=== PATIENT | female | born 1995 | race Hispanic/Latino ===

== ENCOUNTER 2016-06-21 12:40 | Emergency (ER) | payer MEDICAID ==
[2016-06-21 13:39] VITALS: BP 138/84
[2016-06-21 14:30] LABS: Alanine Aminotransferase 11 units/L (7-56); Albumin 3.6 g/dL (3.9-5); Albumin/Globulin Ratio 1.1 %; Alkaline Phosphatase 85 units/L (35-129); Anion Gap 15 mmol/L; Bilirubin,Total 0.2 mg/dL (0.1-1.2); Blood Urea Nitrogen 5 mg/dL (7-17); Calcium 9.1 mg/dL (8.4-10.2); Carbon Dioxide 22 mmol/L (22-30); Chloride 100.7 mmol/L (98-107); Glucose 93 mg/dL (65-100); Lipase 25 units/L (13-60); Potassium 3.9 mmol/L (3.6-5.0); Sodium 134 mmol/L (137-145); Total Protein 6.8 g/dL (6.3-8.2)
[2016-06-21 14:33] LABS: Basophils % (Auto) 0.3 % (0.0-1.8); Eosinophils % (Auto) 0.8 % (0.0-4.3); Hematocrit 35.1 % (30.3-42.9); Hemoglobin 11.8 gm/dl (10.1-14.3); Mean Corpuscular HGB Conc 34 % (30-34); Mean Corpuscular Hemoglobin 28 pg (28-32); Mean Corpuscular Volume 84 fl (79-97); Platelet Count 240 K/mm3 (140-440); Red Blood Count 4.18 M/mm3 (3.65-5.03); Red Cell Distribution Width 16.2 % (13.2-15.2); White Blood Count 10.2 K/mm3 (4.5-11.0)
[2016-06-21 15:19] LABS: Bilirubin,Urine NEG (Negative); Blood,Urine NEG (Negative); Ketones,Urine NEG (Negative); Leukocyte Esterase,Urine MOD (Negative); Mucus,Urine 3+ /HPF; Nitrite,Urine NEG (Negative); Protein,Urine <15 mg/dL mg/dL (Negative)
--- NOTE | 2016-06-22 12:42 | ED Elopement Review ---
ED Pt Elopement review - Results review Lab results: Laboratory Tests 06/21/16 06/21/16 06/21/16 13:56 13:56 14:23 WBC 10.2 RBC 4.18 Hgb 11.8 Hct 35.1 MCV 84 MCH 28 MCHC 34 RDW 16.2 H Plt Count 240 Lymph % (Auto) 17.6 [place] % (Auto) 3.5 Eos % (Auto) 0.8 Baso % (Auto) 0.3 Lymph # 1.8 Josephine # 0.4 Eos # 0.1 Baso # 0.0 Seg Neutrophils % 77.8 H Seg Neutrophils # 7.9 H Sodium 134 L Potassium 3.9 Chloride 100.7 Carbon Dioxide 22 Anion Gap 15 BUN 5 L Creatinine 0.5 L Estimated GFR > 60 BUN/Creatinine Ratio 10.00 Glucose 93 Calcium 9.1 Total Bilirubin 0.2 AST 13 ALT 11 Alkaline Phosphatase 85 Total Protein 6.8 Albumin 3.6 L Albumin/Globulin Ratio 1.1 Lipase 25 Urine Color Yellow Urine Turbidity Clear Urine pH 6.0 Ur Specific [place] 1.020 Urine Protein <15 mg/dl Urine Glucose (UA) Neg Urine Ketones Neg Urine Blood Neg Urine Nitrite Neg Urine Bilirubin Neg Urine Urobilinogen 2.0 Ur Leukocyte Esterase Mod Urine WBC (Auto) 1.0 Urine RBC (Auto) 2.0 U Epithel Cells (Auto) 4.0 Urine Mucus 3+ - Call Back decision Pt Call Back Decision: No action required
== END 2016-06-21 23:45 | disposition left against medical advice (07) ==
LOC: ED 12:40
DX: O26.891 Other specified pregnancy related conditions, first trimester (principal); R10.9 Unspecified abdominal pain; Z53.21 Procedure and treatment not carried out due to patient leaving prior to being seen by health care provider
CPT/HCPCS: 36415; 80053; 81001; 83690; 85025

== ENCOUNTER 2016-07-04 21:54 | Emergency (ER) | payer MEDICAID ==
[2016-07-04 23:15] LABS: Basophils % (Auto) 0.2 % (0.0-1.8); Eosinophils % (Auto) 1.7 % (0.0-4.3); Hematocrit 36.8 % (30.3-42.9); Hemoglobin 12.3 gm/dl (10.1-14.3); Mean Corpuscular HGB Conc 34 % (30-34); Mean Corpuscular Hemoglobin 28 pg (28-32); Mean Corpuscular Volume 84 fl (79-97); Platelet Count 252 K/mm3 (140-440); Red Cell Distribution Width 15.3 % (13.2-15.2); White Blood Count 11.9 K/mm3 (4.5-11.0)
[2016-07-04 23:51] LABS: Alanine Aminotransferase 19 units/L (7-56); Albumin 3.7 g/dL (3.9-5); Albumin/Globulin Ratio 1.1 %; Alkaline Phosphatase 105 units/L (35-129); Anion Gap 23 mmol/L; Bilirubin,Total 0.2 mg/dL (0.1-1.2); Blood Urea Nitrogen 5 mg/dL (7-17); Calcium 8.9 mg/dL (8.4-10.2); Carbon Dioxide 17 mmol/L (22-30); Chloride 100.6 mmol/L (98-107); Glucose 112 mg/dL (65-100); Lipase 28 units/L (13-60); Potassium 3.3 mmol/L (3.6-5.0); Sodium 137 mmol/L (137-145); Total Protein 7.2 g/dL (6.3-8.2)
[2016-07-05 01:28] LABS: Bilirubin,Urine NEG (Negative); Blood,Urine NEG (Negative); Ketones,Urine TR mg/dL (Negative); Leukocyte Esterase,Urine MOD (Negative); Mucus,Urine 3+ /HPF; Nitrite,Urine NEG (Negative); Urobilinogen,Urine < 2.0 mg/dL (<2.0)
[2016-07-05 01:55] LABS: Bacteria,Urine 1+ /HPF (Negative)
--- NOTE | 2016-07-05 06:18 | Emergency Department Report ---
ED HPI - General Chief complaint: Abdominal Pain Stated complaint: HEADACHE/STOMACH PAINS Time Seen by Provider: 07/05/16 06:17 Source: patient Mode of arrival: Ambulatory Limitations: No Limitations - Related Data Previous Rx's Medication Instructions Recorded Last Taken Type Ibuprofen [Motrin] 800 mg PO Q8HR PRN #20 tablet 03/02/16 Unknown Rx Allergies Allergy/AdvReac Type Severity Reaction Status Date / Time No Known Allergies Allergy Unverified 03/01/16 21:57 ED Review of Systems ROS: Stated complaint: HEADACHE/STOMACH PAINS Other details as noted in HPI ED Past Medical Hx - Past Medical History Previous Medical History?: Yes Hx Kidney Stones: Yes Hx Asthma: Yes - Surgical History Past Surgical History?: Yes Additional Surgical History: ERCP - Social History Smoking Status: Never Smoker Substance Use Type: None - Medications Home Medications: Home Medications Medication Instructions Recorded Confirmed Last Taken Type Ibuprofen [Motrin] 800 mg PO Q8HR PRN #20 tablet 03/02/16 Unknown Rx ED Physical Exam - General Limitations: No Limitations ED Course Vital Signs 07/04/16 07/05/16 22:27 04:29 Temperature 98.5 F 98.3 F Pulse Rate 74 85 Respiratory 18 15 Rate Blood Pressure 135/93 Blood Pressure 126/79 [Left] O2 Sat by Pulse 100 100 Oximetry ED Medical Decision Making - Lab Data Result diagrams: 07/04/16 23:04 07/04/16 23:04 Laboratory Results - last 24 hr 07/04/16 07/04/16 07/04/16 23:04 23:04 23:04 WBC 11.9 H RBC 4.40 Hgb 12.3 Hct 36.8 MCV 84 MCH 28 MCHC 34 RDW 15.3 H Plt Count 252 Lymph % (Auto) 19.6 [place] % (Auto) 3.0 Eos % (Auto) 1.7 Baso % (Auto) 0.2 Lymph # 2.3 [place] # 0.4 Eos # 0.2 Baso # 0.0 Seg Neutrophils % 75.5 H Seg Neutrophils # 9.0 H Sodium 137 Potassium 3.3 L Chloride 100.6 Carbon Dioxide 17 L Anion Gap 23 BUN 5 L Creatinine 0.5 L Estimated GFR > 60 BUN/Creatinine Ratio 10.00 Glucose 112 H Calcium 8.9 Total Bilirubin 0.2 AST 15 ALT 19 Alkaline Phosphatase 105 Total Protein 7.2 Albumin 3.7 L Albumin/Globulin Ratio 1.1 Lipase 28 HCG, Quant 61248 H Urine Color Urine Turbidity Urine pH Ur Specific [place] Urine Protein Urine Glucose (UA) Urine Ketones Urine Blood Urine Nitrite Urine Bilirubin Urine Urobilinogen Ur Leukocyte Esterase Urine WBC (Auto) Urine RBC (Auto) U Epithel Cells (Auto) Urine Bacteria (Auto) Urine Mucus Urine Yeast (Budding) 07/05/16 00:05 WBC RBC Hgb Hct MCV MCH MCHC RDW Plt Count Lymph % (Auto) [place] % (Auto) Eos % (Auto) Baso % (Auto) Lymph # [place] # Eos # Baso # Seg Neutrophils % Seg Neutrophils # Sodium Potassium Chloride Carbon Dioxide Anion Gap BUN Creatinine Estimated GFR BUN/Creatinine Ratio Glucose Calcium Total Bilirubin AST ALT Alkaline Phosphatase Total Protein Albumin Albumin/Globulin Ratio Lipase HCG, Quant Urine Color Dee Urine Turbidity Slightly-cloudy Urine pH 5.0 Ur Specific [place] 1.030 Urine Protein 30 mg/dl Urine Glucose (UA) Neg Urine Ketones Tr Urine Blood Neg Urine Nitrite Neg Urine Bilirubin Neg Urine Urobilinogen < 2.0 Ur Leukocyte Esterase Mod Urine WBC (Auto) 19.0 H Urine RBC (Auto) 6.0 U Epithel Cells (Auto) 32.0 H Urine Bacteria (Auto) 1+ Urine Mucus 3+ Urine Yeast (Budding) Few Critical care attestation.: If time is entered above; I have spent that time in minutes in the direct care of this critically ill patient, excluding procedure time. ED Disposition Condition: Stable Instructions: Abdominal Pain (ED) Referrals: PRIMARY CARE, [Primary Care Provider] - 3-5 Days
[2016-07-05] MEDS ORDERED: NACL 0.9% 1000 ML 1,000 ML IV ONE (06:19)
[2016-07-05 06:57] VITALS: BP 128/72
== END 2016-07-05 06:57 | disposition left against medical advice (07) ==
LOC: ED 21:54
DX: O26.891 Other specified pregnancy related conditions, first trimester (principal); R51 Headache; R10.9 Unspecified abdominal pain; Z53.21 Procedure and treatment not carried out due to patient leaving prior to being seen by health care provider
CPT/HCPCS: 36415; 80053; 81001; 83690; 84702; 85025